=== PATIENT | female | born 1975 | race Caucasian/White ===

== ENCOUNTER 2017-05-17 12:05 | Emergency (ER) | payer MEDICAID ==
--- NOTE | 2017-05-17 12:23 | ED Physician Chart ---
ED Chief Complaint/HPI - Patient Information Date Seen:: 05/17/17 Time Seen:: 12:10 Chief Complaint:: shortness of breath History of Present Illness:: Patient had onset this morning of shortness of breath increased in the supine position. She denies chest pain. She feels like something is obstructing her throat. Patient had cough a few days ago Allergies:: Allergies Allergy/AdvReac Type Severity Reaction Status Date / Time albuterol Allergy Verified 02/20/16 05:58 Historian:: Patient Review:: Nurse's Note Reviewed ED Review of Systems - Review of Systems General/Constitutional: No fever, No chills Skin: No skin lesions Head: No headache Eyes: No loss of vision ENT: No earache Neck: No neck pain, No swelling Cardio Vascular: No chest pain, No palpitations Pulmonary: SOB GI: No nausea, No vomiting, No diarrhea G/U: No dysuria Musculoskeletal: No bone or joint pain, No back pain, No muscle pain Endocrine: No polyuria Psychiatric: No prior psych history Hematopoietic: No bruising Allergic/Immuno: No urticaria Neurological: No syncope, No focal symptoms ED Past Medical History - Past Medical History Past Medical History: Other (2 prior episodes and the deep vein thrombosis; sleep apnea) Family History: Heart disease, Diabetes Melitus, Other (seizures) Social History: Smoker, Other (smokes about 5 cigarettes a day; no alcohol) Surgical History: (2 sections; laparotomy) Psychiatricy History: None Medication: Reviewed Family Medical History - Family Member Maternal History Unknown: Yes Ethnicity: Non- Living Status: Still Living Hx Family Cancer: No Hx Family Coronary Artery Disease: No Hx Family Congestive Heart Failure: No Hx Family Diabetes: Yes Mother Hx Family Hypertension: Yes Hx Family Diabetes: Yes ED Physical Exam - Physical Examination General/Constitutional: Well-developed, well-nourished, Alert, No distress Other Gen/Cons comments:: Patient states she is 5 feet 2 inches tall and weighs 430 pounds Head: Atraumatic Eyes: Lids, conjuctiva normal, PERRL Skin: Nl inspection, No rash, No skin lesions, No ecchymosis ENMT: External ears, nose nl, TM canals nl, Nasal exam nl, Lips, teeth, gums nl , Oropharynx nl, Tonsils nl Neck: No nuchal rigidity Respiratory: Nl effort/Exclusion, Clear to Auscultation, No Wheeze/Rhonchi/Rales Cardio Vascular: RRR GI: No tenderness/rebounding/guarding : No CVA tenderness Extremities: Normal digits & nails Other Extremities comments:: Redness distal both lower legs for about 20 cm proximal to the ankles Neuro/Psych: No focal deficits Misc: No paraspinal tenderness ED Labs/Radiology/EKG Results - Lab Results Results: Laboratory Results - last 24 hr 05/17/17 05/17/17 05/17/17 12:38 12:38 12:38 WBC 7.3 RBC 5.08 Hgb 14.2 Hct 44.3 D MCV 87.3 MCH 27.9 MCHC Differential 32.0 RDW 13.9 Plt Count 343 D MPV 7.9 Neutrophils % 60.1 Lymphocytes % 33.0 Monocytes % 4.6 Eosinophils % 1.5 Basophils % 0.8 Sodium 136 Potassium 4.0 Chloride 100 Carbon Dioxide 31.4 H Anion Gap 8.6 BUN 18 Creatinine 0.7 Est GFR ( Amer) > 60.0 Est GFR (Non-Af Amer) > 60.0 BUN/Creatinine Ratio 25.7 Glucose 154 H Calcium 9.3 Magnesium 2.3 Troponin I B-Natriuretic Peptide 8.3 Serum , Qual 05/17/17 05/17/17 12:38 12:38 WBC RBC Hgb Hct MCV MCH MCHC Differential RDW Plt Count MPV Neutrophils % Lymphocytes % Monocytes % Eosinophils % Basophils % Sodium Potassium Chloride Carbon Dioxide Anion Gap BUN Creatinine Est GFR ( Amer) Est GFR (Non-Af Amer) BUN/Creatinine Ratio Glucose Calcium Magnesium Troponin I 0.01 B-Natriuretic Peptide Serum , Qual NEGATIVE - Radiology Results Results: Chest x-ray normal - EKG Interpretations Rate & Rhythm: normal sinus rhythm with a rate of 86 [place]: normal axis Comments:: Borderline right axis deviation; poor R-wave progression ED Septic Shock - . Is Septic Shock (SBP<90, OR Lactate>4 mmol\L) present?: No ED Reassessment (Disposition) - Reassessment Reassessment:: Patient does not have a medical problem which requires admission. We called Dr. Benítez's office and he will see the patient in 4 days at 4:30 PM. Reassessment Condition:: Unchanged - Diagnosis Diagnosis:: Stasis dermatitis lower extremities; hyperglycemia - Aftercare/Follow up Instructions Aftercare/Follow-Up Instructions:: Refer to Discharge Instructions - Patient Disposition Discharge/Transfer:: Home Condition at Disposition:: Stable, Unchanged
[2017-05-17 12:58] LABS: % BASOPHILS 0.8 % (0.0-2.0); % EOSINOPHILS 1.5 % (0.0-5.0); % MONOCYTES 4.6 % (2.0-10.0); % NEUTROPHILS 60.1 % (40.0-80.0); BASOPHILE ABSOLUTE 0.1 Th/cumm (0-0.2); EOSINOPHILE ABSOLUTE 0.1 Th/cmm (0.1-0.4); HEMOGLOBIN 14.2 gm/dL (12-16); LYMPHOCYTE ABSOLUTE 2.4 Th/cmm (1.5-3.0); MEAN CELL VOLUME 87.3 fl (81-100); MEAN CORPUSCULAR HEMOGLOBIN 27.9 pg (27.0-31.0); MEAN PLATELET VOLUME 7.9 fl; MONOCYTE ABSOLUTE 0.3 Th/cmm (0.3-1.0); NEUTROPHILE ABSOLUTE 4.4 Th/cmm (1.8-8.0); RED BLOOD COUNT 5.08 Mil/cmm (3.80-5.10); RED CELL DISTRIBUTION WIDTH 13.9 % (11.5-20.0); WHITE BLOOD COUNT 7.3 Th/cmm (4.8-10.8)
[2017-05-17 13:01] LABS: HEMATOCRIT 44.3 % (41.0-60); PLATELET COUNT 343 Th/cmm (150-400)
[2017-05-17 13:02] LABS: ANION GAP 8.6 (7.0-16.0); BUN - UREA NITROGEN 18 mg/dL (7-25); CALCIUM SERUM 9.3 mg/dL (8.6-10.3); CARBON DIOXIDE 31.4 mEq/L (21.0-31.0); CHLORIDE 100 mEq/L (98-107); CREATININE - SERUM 0.7 mg/dL (0.6-1.2); GFR AFRICAN-AMERICAN > 60.0 ml/min (>90); GFR NON AFRICAN-AMERICAN > 60.0 ml/min; GLUCOSE 154 mg/dL (70-105); MAGNESIUM 2.3 mg/dL (1.9-2.7); SODIUM SERUM 136 mEq/L (136-145)
--- NOTE | 2017-05-17 14:36 | Diagnostic Imaging Report ---
Bilateral lower extremity DVT study HISTORY: Shortness of breath, history of DVT COMPARISON: Previous venous Doppler 03/15/2016 Technique: Longitudinal and transverse sonographic images of the bilateral lower extremity veins were obtained with doppler analysis. FINDINGS: Exam is limited due to body habitus. There is normal compressibility, augmentation and phasicity of the bilateral common femoral, superficial femoral, popliteal, and posterior tibial veins. No thrombus is visualized. IMPRESSION: Limited exam due to body habitus. No evidence of thrombus within the bilateral lower extremity veins.
--- NOTE | 2017-05-17 14:59 | Diagnostic Imaging Report ---
CHEST X-RAY: AP view INDICATION: Shortness of breath COMPARISON: Chest x-ray 04/30/2015 FINDINGS: Increased interstitial lung markings are noted. No focal consolidation or effusions. Mild cardiomegaly is noted. Degenerative changes of the spine are noted. IMPRESSION: Increased interstitial lung markings. A marginal degree of congestion cannot be excluded. Please correlate with clinical findings Increased right basal lung markings favoring atelectasis. No focal consolidation identified. Mild cardiomegaly.
== END 2017-05-17 15:30 | disposition home or self-care (01) ==
LOC: ER 12:05
DX: I87.2 Venous insufficiency (chronic) (peripheral) (principal); R73.9 Hyperglycemia, unspecified; F17.210 Nicotine dependence, cigarettes, uncomplicated
CPT/HCPCS: 36415-UA; 71045-TC; 80048-TC; 81025-TC; 83735-TC; 83880-TC; 84484-TC; 84703-TC; 85025-TC; 93005; 93970-TC-50

== ENCOUNTER 2018-05-09 15:00 | Emergency (ER) | payer MEDICAID ==
--- NOTE | 2018-05-09 15:49 | ED Physician Chart ---
ED Chief Complaint/HPI - Patient Information Date Seen:: 05/09/18 Time Seen:: 15:35 Chief Complaint:: shortness of breath and chest pain History of Present Illness:: Patient developed some shortness of breath and pain across the superior chest 45 minutes ago. She also complains of dizziness and leg pain. Patient was admitted to [facility] from the ninth to 14th of this month for a deep vein thrombosis behind her right knee. Patient has not filled her discharge medications. Patient has been staying in a motel since she was discharged from [facility]. Allergies:: Allergies Allergy/AdvReac Type Severity Reaction Status Date / Time albuterol Allergy Verified 02/20/16 05:58 Historian:: Patient Review:: Nurse's Note Reviewed ED Review of Systems - Review of Systems General/Constitutional: No fever Skin: No skin lesions Head: No headache Eyes: No loss of vision ENT: No earache Neck: No neck pain Cardio Vascular: Chest pain Pulmonary: SOB GI: No nausea, No vomiting, No diarrhea G/U: No dysuria Endocrine: No polyuria Psychiatric: No prior psych history Hematopoietic: No bruising Allergic/Immuno: No urticaria Neurological: No syncope ED Past Medical History - Past Medical History Past Medical History: DM, Asthma/COPD, Thyroid disorder, Arthritis, Other ( cellulitis legs) Family History: Diabetes Melitus, Other (seizures; schizophrenia; bipolar) Social History: Smoker, No Alcohol, Other (smokes 2-3 cigarettes a day) Surgical History: , other (laparotomy) Family Medical History - Family Member Mother Hx Family Hypertension: Yes Hx Family Diabetes: Yes Maternal History Unknown: Yes Ethnicity: Non- Living Status: Still Living Hx Family Cancer: No Hx Family Coronary Artery Disease: No Hx Family Congestive Heart Failure: No Hx Family Diabetes: Yes ED Physical Exam - Physical Examination General/Constitutional: Awake, Well-developed, well-nourished Head: Atraumatic Eyes: Lids, conjuctiva normal, PERRL Other Skin comments:: Erythema distal lower legs, ankles and feet ENMT: External ears, nose nl Neck: No nuchal rigidity Respiratory: Nl effort/Exclusion, Clear to Auscultation Cardio Vascular: RRR, No murmur, gallop, rubs GI: No tenderness/rebounding/guarding Extremities: Normal digits & nails Neuro/Psych: No focal deficits ED Labs/Radiology/EKG Results - Lab Results Results: Laboratory Results WBC 9.1 Th/cmm (4.8-10.8) 05/09/18 15:58 RBC 4.89 Mil/cmm (3.80-5.10) 05/09/18 15:58 Hgb 14.1 gm/dL (12-16) 05/09/18 15:58 Hct 42.8 % (41.0-60) 05/09/18 15:58 MCV 87.6 fl (81-100) 05/09/18 15:58 MCH 28.8 pg (27.0-31.0) 05/09/18 15:58 MCHC Differential 32.9 pg (28.0-36.0) 05/09/18 15:58 RDW 13.6 % (11.5-20.0) 05/09/18 15:58 Plt Count 303 Th/cmm (150-400) 05/09/18 15:58 MPV 8.2 fl 05/09/18 15:58 Neutrophils % 60.6 % (40.0-80.0) 05/09/18 15:58 Lymphocytes % 31.0 % (20.0-50.0) 05/09/18 15:58 Monocytes % 6.1 % (2.0-10.0) 05/09/18 15:58 Eosinophils % 1.8 % (0.0-5.0) 05/09/18 15:58 Basophils % 0.5 % (0.0-2.0) 05/09/18 15:58 Sodium 137 mEq/L (136-145) 05/09/18 15:58 Potassium 4.1 mEq/L (3.5-5.1) 05/09/18 15:58 Chloride 103 mEq/L (98-107) 05/09/18 15:58 Carbon Dioxide 27.0 mEq/L (21.0-31.0) 05/09/18 15:58 Anion Gap 11.1 (7.0-16.0) 05/09/18 15:58 BUN 19 mg/dL (7-25) 05/09/18 15:58 Creatinine 0.8 mg/dL (0.6-1.2) 05/09/18 15:58 Est GFR ( Amer) > 60.0 ml/min (>90) 05/09/18 15:58 Est GFR (Non-Af Amer) > 60.0 ml/min 05/09/18 15:58 BUN/Creatinine Ratio 23.8 05/09/18 15:58 Glucose 219 mg/dL (70-105) H 05/09/18 15:58 Calcium 8.7 mg/dL (8.6-10.3) 05/09/18 15:58 Troponin I < 0.01 ng/mL (0.01-0.05) L 05/09/18 15:58 B-Natriuretic Peptide 16.5 pg/mL (5.0-100.0) 05/09/18 15:58 Serum , Qual NEGATIVE (NEGATIVE) 05/09/18 15:58 - Radiology Results Results: Chest x-ray shows cardiomegaly but is otherwise normal - EKG Interpretations Rate & Rhythm: normal sinus rhythm with a rate of 97 [place]: borderline right axis deviation Comments:: Poor R-wave progression ED Assessment - Assessment General Assessment: Patient refuses to have venous Doppler done as she stated the procedure is too painful so we do not know if patient has a deep vein thrombosis or not. I talked to Dr. Hernández and he felt patient does not meet criteria for admission. Patient be discharged in the morning ED Septic Shock - . Is Septic Shock (SBP<90, OR Lactate>4 mmol\L) present?: No ED Reassessment (Disposition) - Reassessment Reassessment Condition:: Unchanged - Diagnosis Diagnosis:: Atypical chest pain; morbid obesity; diabetes; sleep apnea - Aftercare/Follow up Instructions Aftercare/Follow-Up Instructions:: Refer to Discharge Instructions - Patient Disposition Discharge/Transfer:: Home Spoke to:: Dr. Hernández Condition at Disposition:: Stable, Unchanged
[2018-05-09 16:03] LABS: % BASOPHILS 0.5 % (0.0-2.0); % EOSINOPHILS 1.8 % (0.0-5.0); % MONOCYTES 6.1 % (2.0-10.0); % NEUTROPHILS 60.6 % (40.0-80.0); EOSINOPHILE ABSOLUTE 0.2 Th/cmm (0.1-0.4); HEMATOCRIT 42.8 % (41.0-60); HEMOGLOBIN 14.1 gm/dL (12-16); LYMPHOCYTE ABSOLUTE 2.8 Th/cmm (1.5-3.0); MEAN CELL VOLUME 87.6 fl (81-100); MEAN CORPUSCULAR HEMOGLOBIN 28.8 pg (27.0-31.0); MEAN CORPUSCULAR HGB CONC 32.9 pg (28.0-36.0); MEAN PLATELET VOLUME 8.2 fl; MONOCYTE ABSOLUTE 0.6 Th/cmm (0.3-1.0); NEUTROPHILE ABSOLUTE 5.5 Th/cmm (1.8-8.0); PLATELET COUNT 303 Th/cmm (150-400); RED BLOOD COUNT 4.89 Mil/cmm (3.80-5.10); RED CELL DISTRIBUTION WIDTH 13.6 % (11.5-20.0); WHITE BLOOD COUNT 9.1 Th/cmm (4.8-10.8)
[2018-05-09 16:18] LABS: ANION GAP 11.1 (7.0-16.0); BUN - UREA NITROGEN 19 mg/dL (7-25); CALCIUM SERUM 8.7 mg/dL (8.6-10.3); CHLORIDE 103 mEq/L (98-107); CREATININE - SERUM 0.8 mg/dL (0.6-1.2); GFR AFRICAN-AMERICAN > 60.0 ml/min (>90); GFR NON AFRICAN-AMERICAN > 60.0 ml/min; GLUCOSE 219 mg/dL (70-105); POTASSIUM SERUM 4.1 mEq/L (3.5-5.1); SODIUM SERUM 137 mEq/L (136-145)
[2018-05-09 17:14] LABS: URINE SOURCE RANDOM
[2018-05-09 17:16] LABS: URINE BILIRUBIN NEGATIVE (NEGATIVE); URINE BLOOD NEGATIVE (NEGATIVE); URINE GLUCOSE (UA) NEGATIVE (NEGATIVE); URINE KETONE NEGATIVE (NEGATIVE); URINE LEUKOCYTE ESTERASE NEGATIVE (NEGATIVE); URINE NITRATE NEGATIVE (NEGATIVE); URINE PROTEIN NEGATIVE (NEGATIVE); URINE UROBILINOGEN 0.2 E.U./dL (0.2 - 1.0)
[2018-05-09 17:29] LABS: URINE CLARITY CLEAR (CLEAR); URINE COLOR YELLOW; URINE MICROSCOPIC INDICATED? YES; URINE RBC NONE SEEN /hpf (0-5); URINE WBC 0-2 /hpf (0-5)
[2018-05-09 17:30] LABS: URINE BACTERIA FEW /hpf (NONE SEEN); URINE EPITHELIAL CELLS FEW /lpf (FEW)
--- NOTE | 2018-05-10 09:41 | Diagnostic Imaging Report ---
Portable chest x-ray HISTORY: Shortness of breath The heart is enlarged. No focal pulmonary processes. No hilar or mediastinal abnormalities. IMPRESSION: 1. Cardiomegaly 2. No focal pulmonary processes
--- NOTE | 2018-05-10 09:43 | Diagnostic Imaging Report ---
Bilateral lower extremity Doppler venous ultrasound exam HISTORY: Pain, swelling The exam is nondiagnostic due to patient size/obesity and lack of cooperation. Patient refused completion of the examination due to pain.
== END 2018-05-10 01:16 | disposition home or self-care (01) ==
LOC: ER 15:00
DX: E11.9 Type 2 diabetes mellitus without complications (principal); G47.30 Sleep apnea, unspecified; E66.01 Morbid (severe) obesity due to excess calories; R07.89 Other chest pain; J44.9 Chronic obstructive pulmonary disease, unspecified; M19.90 Unspecified osteoarthritis, unspecified site; E07.9 Disorder of thyroid, unspecified; F17.210 Nicotine dependence, cigarettes, uncomplicated; Z59.0 Homelessness; Z88.8 Allergy status to other drugs, medicaments and biological substances
CPT/HCPCS: 36415-UA; 71045-TC; 80048-TC; 81001-TC; 83036-90; 83880-TC; 84484-TC; 84703-TC; 85025-TC; 93005; 93970-TC-50; Z7502

== ENCOUNTER 2018-09-07 19:48 | Emergency (ER) | payer MEDICAID ==
--- NOTE | 2018-09-07 20:35 | ED Physician Chart ---
ED Chief Complaint/HPI - Patient Information Date Seen:: 09/07/18 Time Seen:: 20:19 Chief Complaint:: bilateral leg pain History of Present Illness:: this is an morbidly obese female who came in tonight with concern about the increasing bilateral leg pain. the edema in the legs is chronic with a past history of dvt of lef lower leg. she also has shortness of breath from a pickwickian effect. she denies chest and abdominal pain. states that she stopped smoking and denies any recent fever. Allergies:: Allergies Allergy/AdvReac Type Severity Reaction Status Date / Time No Known Allergies Allergy Verified 09/07/18 20:08 Vitals:: Vital Signs - 8 hr 09/07/18 20:09 Temp 97.5 F HR 100 RR 18 BP 142/79 O2 Sat % 96 Historian:: Patient Review:: Nurse's Note Reviewed, Old Chart Reviewed ED Review of Systems - Review of Systems General/Constitutional: No fever, No chills, No weight loss, No weakness, No diaphoresis, No edema, No loss of appetite Skin: No skin lesions, No rash, No bruising Head: No headache, No light-headedness Eyes: No loss of vision, No pain, No diplopia ENT: No earache, No nasal drainage, No sore throat, No tinnitus Neck: No neck pain, No swelling, No thyromegaly, No stiffness, No mass noted Cardio Vascular: No chest pain, No palpitations, No PND, No orthopnea, No edema Pulmonary: No SOB, No cough, No sputum, No wheezing GI: No nausea, No vomiting, No diarrhea, No pain, No melena, No hematochezia, No constipation, No hematemesis G/U: No dysuria, No frequency, No hematuria Musculoskeletal: Bone or joint pain (bilateral leg pain), No back pain, No muscle pain Endocrine: No polyuria, No polydipsia Psychiatric: No prior psych history, No depression, No anxiety, No suicidal ideation Hematopoietic: No bruising, No lymphadenopathy Allergic/Immuno: No urticaria, No angioedema Neurological: No syncope, No focal symptoms, No weakness, No paresthesia, No headache, No seizure, No dizziness, No confusion, No vertigo ED Past Medical History - Past Medical History Obtainable: Yes Past Medical History: HTN, Asthma/COPD, Arthritis, Other (severe lower extremity edema, morbid obesity sleep apnea) Family History: Diabetes Melitus Social History: Non Smoker, No Alcohol, No Drug Use, Single Surgical History: None, (two c-sections and a lap x 1) Psychiatricy History: None Medication: Reviewed Family Medical History - Family Member Mother History Unknown: Yes Hx Family Hypertension: Yes Hx Family Diabetes: Yes Maternal History Unknown: Yes Ethnicity: Non- Living Status: Still Living Hx Family Cancer: No Hx Family Coronary Artery Disease: No Hx Family Congestive Heart Failure: No Hx Family Diabetes: Yes ED Physical Exam - Physical Examination General/Constitutional: Awake, Well-developed, well-nourished, Alert, No distress, GCS 15, Non-toxic appearing, Ambulatory Other Gen/Cons comments:: obese Head: Atraumatic Eyes: Lids, conjuctiva normal, PERRL, EOMI Skin: Nl inspection, No rash, No skin lesions, No ecchymosis, Well hydrated, No lymphadenopathy ENMT: External ears, nose nl, Nasal exam nl, Lips, teeth, gums nl Neck: Nontender, Full ROM w/o pain, No JVD, No nuchal rigidity, No bruit, No mass, No stridor Respiratory: Nl effort/Exclusion (decreased diaphram movement, some wheezes heard), Clear to Auscultation, No Wheeze/Rhonchi/Rales Cardio Vascular: RRR, No murmur, gallop, rubs, NL S1 S2 GI: No tenderness/rebounding/guarding, No organomegaly, No hernia, Normal BS's, Nondistended, No mass/bruits, No McBurney tenderness Other GI comments:: large obese abdomen area : No CVA tenderness Extremities: No tenderness or effusion, Full ROM, normal strength in all extremities, No edema (severe bilateral 4 plus pitting edema and there is tenderness both lower extremities), Normal digits & nails Neuro/Psych: Alert/oriented, DTR's symmetric, Normal sensory exam, Normal motor strength, Judgement/insight normal, Mood normal, Normal gait, No focal deficits Misc: Normal back, No paraspinal tenderness ED Labs/Radiology/EKG Results - Lab Results Results: Abnormal Lab Results 09/07/18 09/07/18 09/07/18 20:00 21:00 21:00 WBC RBC Hgb Hct MCV MCH MCHC Differential RDW Plt Count MPV Neutrophils % Lymphocytes % Monocytes % Eosinophils % Basophils % PT 9.4 L INR 0.90 PTT (Actin FS) 24.6 L D-Dimer Specimen Source Arterial Sample Site Left Radial pH 7.434 pCO2 46.0 H pO2 91.1 HCO3 30.1 H Base Excess 5.0 H O2 Saturation 97.1 Jaison Test Positive Vent Rate NA Inspired O2 28 Tidal Volume NA PEEP NA Pressure (ins/psv/peep) NA Critical Value JG Sodium Potassium Chloride Carbon Dioxide Anion Gap BUN Creatinine Est GFR ( Amer) Est GFR (Non-Af Amer) BUN/Creatinine Ratio Glucose Calcium Total Bilirubin AST ALT Alkaline Phosphatase Troponin I B-Natriuretic Peptide Total Protein Albumin Globulin Albumin/Globulin Ratio Triglycerides Cholesterol LDL Cholesterol Direct HDL Cholesterol TSH 1.31 09/07/18 09/07/18 09/07/18 21:00 21:00 21:00 WBC 9.1 RBC 4.81 Hgb 13.5 Hct 41.6 MCV 86.6 MCH 28.0 MCHC Differential 32.4 RDW 14.1 Plt Count 266 MPV 8.1 Neutrophils % 66.2 Lymphocytes % 25.7 Monocytes % 4.6 Eosinophils % 2.7 Basophils % 0.8 PT INR PTT (Actin FS) D-Dimer Specimen Source Sample Site pH pCO2 pO2 HCO3 Base Excess O2 Saturation Jaison Test Vent Rate Inspired O2 Tidal Volume PEEP Pressure (ins/psv/peep) Critical Value Sodium 136 Potassium 4.1 Chloride 100 Carbon Dioxide 27.4 Anion Gap 12.7 BUN 21 Creatinine 0.7 Est GFR ( Amer) > 60.0 Est GFR (Non-Af Amer) > 60.0 BUN/Creatinine Ratio 30.0 Glucose 260 H Calcium 9.1 Total Bilirubin 0.2 L AST 17 ALT 21 Alkaline Phosphatase 51 Troponin I B-Natriuretic Peptide Total Protein 7.0 Albumin 3.5 L Globulin 3.5 Albumin/Globulin Ratio 1.0 Triglycerides 222 H Cholesterol 153 LDL Cholesterol Direct 87 HDL Cholesterol 43 TSH 09/07/18 09/07/18 09/07/18 21:00 21:00 21:00 WBC RBC Hgb Hct MCV MCH MCHC Differential RDW Plt Count MPV Neutrophils % Lymphocytes % Monocytes % Eosinophils % Basophils % PT INR PTT (Actin FS) D-Dimer 158 Specimen Source Sample Site pH pCO2 pO2 HCO3 Base Excess O2 Saturation Jaison Test Vent Rate Inspired O2 Tidal Volume PEEP Pressure (ins/psv/peep) Critical Value Sodium Potassium Chloride Carbon Dioxide Anion Gap BUN Creatinine Est GFR ( Amer) Est GFR (Non-Af Amer) BUN/Creatinine Ratio Glucose Calcium Total Bilirubin AST ALT Alkaline Phosphatase Troponin I 0.01 B-Natriuretic Peptide 13.1 Total Protein Albumin Globulin Albumin/Globulin Ratio Triglycerides Cholesterol LDL Cholesterol Direct HDL Cholesterol TSH - Radiology Results Results: chest x-ray = nad ultrasound of the lower extremities = neg for dvt - EKG Interpretations EKG Time:: 20:43 Rate & Rhythm: rate= 102, sinus [place]: right ED Assessment - Assessment General Assessment: severe edema of both lower extremities ED Septic Shock - . Is Septic Shock (SBP<90, OR Lactate>4 mmol\L) present?: No - <6hrs of presentation: Vital Signs: Vital Signs - 8 hr 09/07/18 20:09 Temp 97.5 F HR 100 RR 18 BP 142/79 O2 Sat % 96 ED Reassessment (Disposition) - Reassessment Reassessment Condition:: Improved - Diagnosis Diagnosis:: bilateral leg pain severe edema of both lower extremities - Aftercare/Follow up Instructions Aftercare/Follow-Up Instructions:: Counseled pt regarding lab results/diagnosis & need follow up, Refer to Discharge Instructions, Counseled pt & family regarding lab results/diagnosis & need follow up Medication Prescribed:: gabapentin - Patient Disposition Discharge/Transfer:: Home Condition at Disposition:: Improved
[2018-09-07 21:13] LABS: % BASOPHILS 0.8 % (0.0-2.0); % EOSINOPHILS 2.7 % (0.0-5.0); % LYMPHOCYTES 25.7 % (20.0-50.0); % MONOCYTES 4.6 % (2.0-10.0); % NEUTROPHILS 66.2 % (40.0-80.0); BASOPHILE ABSOLUTE 0.1 Th/cumm (0-0.2); EOSINOPHILE ABSOLUTE 0.2 Th/cmm (0.1-0.4); HEMATOCRIT 41.6 % (41.0-60); HEMOGLOBIN 13.5 gm/dL (12-16); LYMPHOCYTE ABSOLUTE 2.3 Th/cmm (1.5-3.0); MEAN CELL VOLUME 86.6 fl (81-100); MEAN CORPUSCULAR HGB CONC 32.4 pg (28.0-36.0); MONOCYTE ABSOLUTE 0.4 Th/cmm (0.3-1.0); NEUTROPHILE ABSOLUTE 6.1 Th/cmm (1.8-8.0); PLATELET COUNT 266 Th/cmm (150-400); RED BLOOD COUNT 4.81 Mil/cmm (3.80-5.10); RED CELL DISTRIBUTION WIDTH 14.1 % (11.5-20.0); WHITE BLOOD COUNT 9.1 Th/cmm (4.8-10.8)
[2018-09-07 21:29] LABS: INR 0.9 (0.5-1.4)
[2018-09-07 21:36] LABS: PaO2 91.1 mmHg (80.0-100.0); pH 7.434 (7.35-7.45)
[2018-09-07 21:36] LABS: ALBUMIN 3.5 gm/dL (3.7-5.3); ALKALINE PHOSPHATASE 51 U/L (34-104); ANION GAP 12.7 (7.0-16.0); BILIRUBIN,TOTAL 0.2 mg/dL (0.3-1.0); BUN - UREA NITROGEN 21 mg/dL (7-25); CALCIUM SERUM 9.1 mg/dL (8.6-10.3); CARBON DIOXIDE 27.4 mEq/L (21.0-31.0); CHLORIDE 100 mEq/L (98-107); CHOLESTEROL 153 mg/dL (<200); CREATININE - SERUM 0.7 mg/dL (0.6-1.2); GFR AFRICAN-AMERICAN > 60.0 ml/min (>90); GFR NON AFRICAN-AMERICAN > 60.0 ml/min; GLUCOSE 260 mg/dL (70-105); HDL -HIGH DENSITY LIPOPROTEIN 43 mg/dL (23-92); POTASSIUM SERUM 4.1 mEq/L (3.5-5.1); SGOT 17 U/L (13-39); SGPT/ALT 21 U/L (7-52); SODIUM SERUM 136 mEq/L (136-145); TRIGLYCERIDES 222 mg/dL (<150)
[2018-09-07 21:39] LABS: ALLEN TEST Positive; sO2c 97.1 % (92.0-100.0)
[2018-09-07] MEDS ORDERED: HYDROmorphone 1 mg/mL 1mL Syr IM STA (22:39)
[2018-09-07] MEDS ORDERED: HYDROmorphone 1 mg/mL 1mL Syr IVP STA (22:39)
[2018-09-07] MEDS ORDERED: HYDROmorphone 1 mg/mL 1mL Syr ONE (22:44)
[2018-09-07 22:51] LABS: URINE SOURCE CLEAN C
[2018-09-07 22:53] LABS: URINE BILIRUBIN NEGATIVE (NEGATIVE); URINE BLOOD NEGATIVE (NEGATIVE); URINE GLUCOSE (UA) NEGATIVE (NEGATIVE); URINE KETONE NEGATIVE (NEGATIVE); URINE LEUKOCYTE ESTERASE NEGATIVE (NEGATIVE); URINE NITRATE NEGATIVE (NEGATIVE); URINE PH 5.5 (4.6 - 8.0); URINE PROTEIN NEGATIVE (NEGATIVE); URINE UROBILINOGEN 0.2 E.U./dL (0.2 - 1.0)
[2018-09-07 23:17] LABS: AMPHETAMINE URINE NEGATIVE (NEGATIVE); BARBITURATES URINE NEGATIVE (NEGATIVE); BENZODIAZEPINES QUAL URINE POSITIVE (NEGATIVE); CANNABINOID THC NEGATIVE (NEGATIVE); COCAINE METABOLITE QUAL URINE NEGATIVE (NEGATIVE); METHADONE URINE NEGATIVE (NEGATIVE); METHAMPHETAMINES QUAL URINE NEGATIVE (NEGATIVE); OPIATES (MORPHINE) QUAL. URINE NEGATIVE (NEGATIVE); PHENCYCLIDINE (PCP) URINE NEGATIVE (NEGATIVE); TRICYCLICS (TCA) QUAL. URINE POSITIVE (NEGATIVE)
[2018-09-07 23:24] LABS: URINE CLARITY CLEAR (CLEAR); URINE COLOR STRAW; URINE MICROSCOPIC INDICATED? NO
--- NOTE | 2018-09-08 10:27 | Diagnostic Imaging Report ---
EXAM: Doppler ultrasound examination of the lower extremities. HISTORY: DVT COMPARISON: None FINDINGS: Real-time ultrasound examination of lower extremities was performed utilizing color Doppler technique. The study demonstrates normal compressibility and augmentation of deep venous system throughout. IMPRESSION: No evidence for deep venous thrombosis lower extremities bilaterally.
--- NOTE | 2018-09-08 10:28 | Diagnostic Imaging Report ---
Exam: Portable chest x-ray HISTORY: Congestive heart failure COMPARISON: 05/09/2018 Findings: Portable examination of chest was reviewed. The study demonstrates cardiomegaly superimposed congestion. The costophrenic angles are clear bony thorax intact. IMPRESSION: cardiomegaly, mild congestive heart failure.
[2018-09-09 08:05] LABS: A1C 7.5 % (4.8-5.6)
== END 2018-09-07 23:55 | disposition home or self-care (01) ==
LOC: ER 19:48
DX: M79.604 Pain in right leg (principal); M79.605 Pain in left leg; R60.0 Localized edema; I10 Essential (primary) hypertension; J44.9 Chronic obstructive pulmonary disease, unspecified; M19.90 Unspecified osteoarthritis, unspecified site; Z98.890 Other specified postprocedural states
CPT/HCPCS: 99284; 96372 ×2; 82803; 36600; 93005; 93970; 71045; 84484; 83880; 36415; 85379; 80307; 84443; 85025; 85610; 85730; 81003; 83036; 81025; 80053; 80061; Q0162; J1885; J1170